=== PATIENT | male | born 1965 | race Caucasian/White ===

== ENCOUNTER 2017-01-13 22:37 | Emergency (ER) | payer BC ==
[~2017-01-13] VITALS: Ht 182.9 cm; Wt 88.3 kg
[2017-01-13 22:38] VITALS: TEMP 36.7; Ht 182.9 cm; Wt 88.3 kg
[2017-01-13] MEDS ORDERED: MoRPHine SULFATE 4 MG/ML 1 ML CARP\\VIAL IV STA (22:49)
[2017-01-13] MEDS ORDERED: ONDANSETRON INJ 2 MG/ML 2 ML VIAL IV STA (22:49)
--- NOTE | 2017-01-13 22:51 | EMERGENCY ROOM VISIT NOTE ---
History Report prepared by Scribe: Omero Heredia Under the Supervision of: Dr. Vimal Glover D.O. First contact with patient: 22:44 Chief Complaint: ABDOMINAL PAIN Stated Complaint: ABD PAIN/HARDNESS,NAUSEA,FEVER,SWEATS/CHILLS Nursing Triage Summary: pt c/o pain across abd, worse on the right side. ongoing for 2 weeks, worsened last night. associated nausea, headaches, sweats and chills, fevers. denies urinary symptoms History of Present Illness The patient is a 51 year old male who presents to the Emergency Room with complaints of waxing & waning right-sided abdominal pain for the past two weeks. The pain became worse last night, rated 9/10 in severity. The pain becomes worse after eating and when he lays flat. The pain improves when he is sitting up. He has also been feeling nauseous. He denies any history of pancreatic, gallbladder, or liver disease. He denies any diarrhea or urinary symptoms. Source of History: patient Onset: two weeks ago Position: abdomen (right side) Symptom Intensity: up to 9/10 Timing: waxes/wanes Associated Symptoms: + nausea, No diarrhea, No urinary symptoms Review of Systems See HPI for pertinent positives and negatives. A total of ten systems were reviewed and were otherwise negative. Past Medical & Surgical Medical Problems: (1) Migraine Family History FH: cancer FH: heart disease Social History Smoking Status: Never Smoker Marital Status: Housing Status: lives with significant other Occupation Status: employed Current/Historical Medications Scheduled PRN Sumatriptan Succinate (Imitrex Statdose), 1 DOSE INJ DIRECTED PRN for Migraine Allergies Coded Allergies: [place] Syrup (Verified Allergy, Intermediate, TRIGGERS MIGRAINE HEADACHE, ) Physical Exam Vital Signs Date Time Temp Pulse Resp B/P Pulse Ox O2 Delivery O2 Flow Rate FiO2 01/14/17 01:45 67 18 145/98 96 Room Air 01/14/17 00:37 66 18 145/88 97 Room Air 01/13/17 23:26 70 18 151/98 95 Room Air 01/13/17 23:17 78 01/13/17 22:38 36.7 96 18 132/95 96 Room Air Physical Exam GENERAL: Awake, alert, well-appearing, in no distress HENT: Normocephalic, atraumatic. Oropharynx unremarkable. EYES: Normal conjunctiva. Sclera non-icteric. NECK: Supple. No nuchal rigidity. FROM. No JVD. RESPIRATORY: Clear to auscultation. CARDIAC: Regular rate, normal rhythm. Extremities warm and well perfused. Pulses equal. ABDOMEN: Soft, non-distended. Tender in the right upper quadrant and mid epigastrium. No rebound or guarding. No masses. RECTAL: Deferred. MUSCULOSKELETAL: Chest examination reveals no tenderness. The back is symmetrical on inspection without obvious abnormality. There is no CVA tenderness to palpation. No joint edema. LOWER EXTREMITIES: Calves are equal size bilaterally and non-tender. No edema. No discoloration. NEURO: Normal sensorium. No sensory or motor deficits noted. SKIN: No rash or jaundice noted. Medical Decision & Procedures ER Provider Diagnostic Interpretation: Radiology results as stated below per my review and radiologist interpretation. CT ABDOMEN & PELVIS: Appendix is normal. Mild fat stranding surrounding the first through third portions of the duodenum. Differential includes duodenitis versus peptic ulcer disease versus groove pancreatitis. Submucosal fat in the duodenum possibly secondary to chronic inflammation or corticosteroid use. Colonic diverticulosis without evidence of diverticulitis. No free air. No evidence of bowel obstruction. 2 mm nonobstructing left renal calculus. Tiny hyperdensities in the liver and left kidney too small to characterize but possible cysts. Small left inguinal fat containing hernia. Radiologist: Aung Palomino MD. Laboratory Results 01/13/17 23:00 Red Blood Count 4.93, Mean Corpuscular Volume 88.4, Mean Corpuscular Hemoglobin 30.2, Mean Corpuscular Hemoglobin Concent 34.2, Mean Platelet Volume 10.3, Neutrophils (%) (Auto) 69.5, Lymphocytes (%) (Auto) 18.9, Monocytes (%) (Auto) 8.6, Eosinophils (%) (Auto) 2.6, Basophils (%) (Auto) 0.2, Neutrophils # (Auto) 7.23, Lymphocytes # (Auto) 1.97, Monocytes # (Auto) 0.89, Eosinophils # (Auto) 0.27, Basophils # (Auto) 0.02 01/13/17 23:00 Test 01/13/17 22:49 01/13/17 23:00 White Blood Count 10.40 K/uL (4.8-10.8) Red Blood Count 4.93 M/uL (4.7-6.1) Hemoglobin 14.9 g/dL (14.0-18.0) Hematocrit 43.6 % (42-52) Mean Corpuscular Volume 88.4 fL (80-100) Mean Corpuscular Hemoglobin 30.2 pg (25-34) Mean Corpuscular Hemoglobin Concent 34.2 g/dl (32-36) Platelet Count 292 K/uL (130-400) Mean Platelet Volume 10.3 fL (7.4-10.4) Neutrophils (%) (Auto) 69.5 % Lymphocytes (%) (Auto) 18.9 % Monocytes (%) (Auto) 8.6 % Eosinophils (%) (Auto) 2.6 % Basophils (%) (Auto) 0.2 % Neutrophils # (Auto) 7.23 K/uL (1.4-6.5) Lymphocytes # (Auto) 1.97 K/uL (1.2-3.4) Monocytes # (Auto) 0.89 K/uL (0.11-0.59) Eosinophils # (Auto) 0.27 K/uL (0-0.5) Basophils # (Auto) 0.02 K/uL (0-0.2) RDW Standard Deviation 45.6 fL (36.4-46.3) RDW Coefficient of Variation 14.0 % (11.5-14.5) Immature Granulocyte % (Auto) 0.2 % Immature Granulocyte # (Auto) 0.02 K/uL (0.00-0.02) Anion Gap 9.0 mmol/L (3-11) Est Creatinine Clear Calc Drug Dose 97.0 ml/min Estimated GFR () 101.3 Estimated GFR (Non- 87.4 BUN/Creatinine Ratio 15.8 (10-20) Calcium Level 9.6 mg/dl (8.5-10.1) Total Bilirubin 0.4 mg/dl (0.2-1) Direct Bilirubin < 0.1 mg/dl (0-0.2) Aspartate Amino Transf (AST/SGOT) 12 U/L (15-37) Alanine Aminotransferase (ALT/SGPT) 25 U/L (12-78) Alkaline Phosphatase 76 U/L (45-117) Total Protein 7.5 gm/dl (6.4-8.2) Albumin 3.9 gm/dl (3.4-5.0) Lipase 157 U/L (73-393) Laboratory results reviewed by me Medications Administered Medications (Trade) Dose Ordered Sig/[place] Route Start Time Stop Time Status Last Admin Dose Admin Ondansetron HCl (Zofran Inj) 4 mg NOW STAT IV 01/13/17 22:49 01/13/17 22:52 DC 01/13/17 23:09 4 MG Morphine Sulfate (MoRPHine SULFATE INJ) 4 mg NOW STAT IV 01/13/17 22:49 01/13/17 22:52 DC 01/13/17 23:09 4 MG ED Course 2245: The patient was evaluated in room C10. A complete history and physical exam was performed. 2249: Morphine Sulfate 4 mg IV, Zofran 4 mg IV. 0135: I reevaluated the patient. He was resting in no distress, still had slight epigastric pain. Discussed results and discharge instructions: He verbalized understanding and agreement. The patient is ready for discharge. Medical Decision Differential diagnosis includes cholelithiasis, cholecystitis, pancreatitis, colitis, dehydration. Repeat examination resting in no distress; discussed workup the patient at bedside. We'll treat for duodenitis. Patient needs referral to GI if this persists. I've instructed the patient to take Pepcid daily we'll place him on pain medicine and he was told to change his diet. Impression Primary Impression: Duodenitis Scribe Attestation The scribe's documentation has been prepared under my direction and personally reviewed by me in its entirety. I confirm that the note above accurately reflects all work, treatment, procedures, and medical decision making performed by me. Departure Information Dispostion Home / Self-Care Prescriptions Hydrocodone/Acetaminophen 5MG/325MG ([place] 5MG/325MG) Tab 1 TABLET PO Q4H Y for Pain, #10 TAB Prov: Vimal Glover, DO 01/14/17 Referrals RV. James MD (PCP) Forms HOME CARE DOCUMENTATION FORM, IMPORTANT VISIT INFORMATION Patient Instructions Keira, My [facility]
[2017-01-13] MEDS ORDERED: SUMA6KIT INJ (23:04)
[2017-01-13 23:28] LABS: BASO % 0.2 %; BASO ABS # 0.02 K/uL (0-0.2); COMPLETE YES; EOS % 2.6 %; HEMATOCRIT 43.6 % (42-52); IG% 0.2 %; LYMPH % 18.9 %; LYMPH ABS # 1.97 K/uL (1.2-3.4); MEAN CELL VOLUME 88.4 fL (80-100); MEAN CORPUSCULAR HEMOGLOBIN 30.2 pg (25-34); MEAN CORPUSCULAR HGB CONC 34.2 g/dl (32-36); MEAN PLATELET VOLUME 10.3 fL (7.4-10.4); MONO % 8.6 %; NEUT % 69.5 %; PLATELET COUNT 292 K/uL (130-400); RED BLOOD COUNT 4.93 M/uL (4.7-6.1)
[2017-01-13] MEDS ORDERED: OPTIRAY 320 IV PRN (23:30)
[2017-01-13 23:48] LABS: ALT/SGPT 25 U/L (12-78); AST/SGOT 12 U/L (15-37); BLOOD UREA NITROGEN 16 mg/dl (7-18); BUN/CREATININE RATIO 15.8 (10-20); CALCIUM 9.6 mg/dl (8.5-10.1); CARBON DIOXIDE 29 mmol/L (21-32); CHLORIDE 107 mmol/L (98-107); GLUCOSE 103 mg/dl (70-99); POTASSIUM 3.9 mmol/L (3.5-5.1); SODIUM 145 mmol/L (136-145)
[2017-01-13 23:51] LABS: ALKALINE PHOSPHATASE 76 U/L (45-117)
[2017-01-14 01:45] VITALS: BP 145/98; PULSE 67; O2SAT 96
[2017-01-14] MEDS ORDERED: NORCO 5/325MG HOME PACK PO ONE (01:45)
[2017-01-14] MEDS ORDERED: HYDR-5688 PO (01:50)
[2017-01-14 01:55] LABS: URINE APPEARANCE CLEAR (CLEAR); URINE BILIRUBIN NEG (NEG); URINE COLOR YELLOW; URINE EPITHELIAL CELL AUTO 0-5 /lpf (0-5); URINE NITRITE NEG (NEG); URINE SPECIFIC GRAVITY > 1.045 (1.000-1.030); UROBILINOGEN NEG (NEG); ZZUR CULT IF INDIC CLEAN CATCH NO
[2017-01-14 02:00] LABS: MANUAL MICROSCOPIC REQUIRED? NO; REVIEW REQ? NO
--- NOTE | 2017-01-14 06:08 | DIAGNOSTIC IMAGING REPORT ---
ABDOMEN AND PELVIS CT WITH IV CONTRAST CT DOSE: 628.55 mGy.cm HISTORY: pain TECHNIQUE: Multiaxial CT images of the abdomen and pelvis were performed following the use of intravenous contrast. COMPARISON STUDY: None. FINDINGS: Lung bases are clear. Liver spleen and pancreas are unremarkable. Subtle infiltrative change of the fat surrounding the gastric antrum and duodenal sweep. This may be secondary to nonspecific duodenitis versus peptic ulcer change. No evidence for gastric distention. Kidneys enhance appropriately. No evidence for obstructive change.. Small left renal cyst with punctate lower pole nonobstructing calcifications. Bowel pattern overall is nonobstructive. There are findings of chronic sigmoid diverticulosis.. IMPRESSION: 1. Mild infiltrative change of the fat surrounding the duodenal sweep suggesting a duodenitis versus peptic ulcer change 2. Chronic sigmoid diverticulosis. 3. Nonobstructing punctate renal cortical calcifications. 4. Nonobstructive bowel pattern. Normal appendix Electronically signed by: Teofilo Vann M.D. 01/14/2017 6:07 AM Dictated Date/Time: 01/14/2017 6:03 AM
[2017-02-13] MEDS ORDERED: PRLSR20 PO (10:21)
== END 2017-01-14 01:58 | disposition home or self-care (01) ==
LOC: C.EDB 22:38 → C.EDC 01-14 01:58
DX: K29.80 Duodenitis without bleeding (principal); Z91.018 Allergy to other foods

== ENCOUNTER → 2017-02-13 | Day surgery (SDC) | payer BC ==
[~2017-02-13] VITALS: Ht 182.9 cm; Wt 90.9 kg
[~2017-02-13] MED LIST: ATROPINE SULFATE 0.1 MG/ML 5ML SYR IV PRN; EpHEDrine SULFATE INJ 50 MG/ML AMP IV PRN; FENTANYL CITRATE INJ 50 MCG/1 ML 2 ML VIAL ONE; HYDR-5688 PO; PRLSR20 PO; PROPOFOL IV EMULSION 10 MG/ML 20 ML VIAL IV ONE; SUMA6KIT INJ
[2017-02-13 09:57] VITALS: Ht 182.9 cm; Wt 90.9 kg
--- NOTE | 2017-02-13 10:58 | Endo History and Physical ---
History & Physical Date of Service: Feb 13, 2017. Chief Complaint: abd pain, duodenitis Referring Physician: Dr James History of Present Illness 51 yo CM who presents for EGD secondary to abdominal pain and duodenitis. Past Surgical History Hx Cardiac Surgery: No Hx Internal Defibrillator: No Hx Pacemaker: No Hx Abdominal Surgery: No Hx of Implantable Prosthesis: No Hx Post-Op Nausea and Vomiting: No Hx Cancer Surgery: No Hx Thoracic Surgery: No Hx Orthopedic: No Hx Urinary Tract Surgery: No Family History None Social History Smoking Status: Never Smoker Hx Substance Use: No Hx Alcohol Use: Yes (socially) Allergies Coded Allergies: [place] Syrup (Verified Allergy, Intermediate, TRIGGERS MIGRAINE HEADACHE, ) Current Medications Reported Home Medications Medications Dose Route/Sig Max Daily Dose Days Date Category Prilosec (Omeprazole) 20 Mg Capcr 20 Mg PO DAILY 02/13/17 Reported [place] 5MG/325MG (Acetaminophen/Hydrocodone Bitart) Tab 1 Tablet PO Q4H PRN 01/14/17 Rx Imitrex Statdose (Sumatriptan Succinate) 6 Mg/0.5 Ml Inj 1 Dose INJ DIRECTED PRN 01/13/17 Reported Vital Signs Weight (Kilograms): 90.9 Height (Feet): 6 Height (Inches): 0 Date Time Temp Pulse Resp B/P (MAP) Pulse Ox O2 Delivery O2 Flow Rate FiO2 02/13/17 10:13 36.7 65 20 131/84 (100) 96 Room Air Physical Exam General Appearance: WD/WN, no apparent distress Respiratory/Chest: Auscultation: breath sounds normal Cardiovascular: Heart Auscultation: RRR Abdomen: Bowel Sounds: normal Inspection & Palpation: soft, non-distended, no tenderness, guarding & rebound Assessment and Plan Assessment: 51 yo CM who presents for EGD secondary to abdominal pain and duodenitis. Plan: Proceed with EGD.
--- NOTE | 2017-02-13 11:09 | Discharge Instructions ---
Endoscopy Patient Instructions Date / Procedure(s) Performed Feb 13, 2017. EGD Allergy Information Coded Allergies: [place] Syrup (Verified Allergy, Intermediate, TRIGGERS MIGRAINE HEADACHE, ) Discharge Date / Findings Feb 13, 2017. Duodenal ulcer Duodenitis s/p biopsies Gastric antrum biopsies Medication Instructions Recommend Pantoprazole 40mg by mouth daily 1/2 hour prior to breakfast. OK to resume medications today as prescribed Medications Dose Route/Sig Max Daily Dose Days Date Category Prilosec (Omeprazole) 20 Mg Capcr 20 Mg PO DAILY 02/13/17 Reported [place] 5MG/325MG (Acetaminophen/Hydrocodone Bitart) Tab 1 Tablet PO Q4H PRN 01/14/17 Rx Imitrex Statdose (Sumatriptan Succinate) 6 Mg/0.5 Ml Inj 1 Dose INJ DIRECTED PRN 01/13/17 Reported Provider Instructions Activity Restrictions - No exercising or heavy lifting for 24 hours. - Do not drink alcohol the day of the procedure. - Do not drive a car or operate machinery until the day after the procedure. - Do not make any important decisions or sign important papers in 24 hours after the procedure. Following Day: - Return to full activity which may include returning to work/school. Diet Start your diet with liquids and light foods (jello, soup, juice, toast). Then eat your usual diet if not nauseated. Treatment For Common After Affects For mild abdominal pain, bloating, or excessive gas: - Rest - Eat lightly - Lie on right side Follow-Up Information Follow-up with Dr James as scheduled Anesthesia Information What You Should Know You have had a procedure that required some medicine to reduce anxiety and discomfort. This treatment is called moderate sedation. After receiving the treatment, you may be sleepy, but you will be able to breathe on your own. The effects of the treatment may last for several hours. Follow these instructions along with Activity/Diet recommendations noted above: * Do NOT do anything where dizziness or clumsiness would be dangerous. * Rest quietly at home today, then you can be up and about tomorrow. * Have a responsible person stay with you the rest of today. * You may have had an I.V. today. If so, you may take the dressing off later today. Recommendations Call your doctor if: * Trouble breathing * Continuous vomiting for more than 24 hours * Temperature above 101 degrees * Severe abdominal pain or bloating * Pain not relieved by pain medicine ordered * There is increased drainage or redness from any incision * A large amount of rectal bleeding greater than 2-3 tablespoons. (If you had a polyp/s removed or have hemorrhoids, a small amount of blood - from the rectum is to be expected.) * You have any unanswered questions or concerns. IN THE EVENT OF A SERIOUS EMERGENCY, GO TO THE NEAREST EMERGENCY ROOM Your discharge instructions were prepared by provider David Mitchell. Patient Instructions Signature Page Juan R Liu Patient (or Guardian) Signature/Date: I have read and understand the instructions given to me by my caregivers. Caregiver/RN/Doctor Signature/Date: The above-named patient and/or guardian has received patient instructions on this date. + Original Patient Signature Page (only) stays with chart. Please make copy for patient.
--- NOTE | 2017-02-13 11:18 | GI REPORT ---
Procedure Date: 02/13/2017 10:25 AM Procedure: Upper GI endoscopy Indications: Abdominal pain in the right upper quadrant Medicines: Monitored Anesthesia Care Complications: No immediate complications. Estimated Blood Loss: Estimated blood loss: none. Procedure: Pre-Anesthesia Assessment: - Prior to the procedure, a History and Physical was performed, and patient medications and allergies were reviewed. The patient's tolerance of previous anesthesia was also reviewed. The risks and benefits of the procedure and the sedation options and risks were discussed with the patient. All questions were answered, and informed consent was obtained. Prior Anticoagulants: The patient has taken no previous anticoagulant or antiplatelet agents. ASA Grade Assessment: II - A patient with mild systemic disease. After reviewing the risks and benefits, the patient was deemed in satisfactory condition to undergo the procedure. After obtaining informed consent, the endoscope was passed under direct vision. Throughout the procedure, the patient's blood pressure, pulse, and oxygen saturations were monitored continuously. The scope was introduced through the mouth, and advanced to the second part of duodenum. The upper GI endoscopy was accomplished without difficulty. The patient tolerated the procedure well. Findings: The esophagus was normal. The entire examined stomach was normal. Biopsies were taken with a cold forceps for Helicobacter pylori testing. One non-bleeding cratered duodenal ulcer with no stigmata of bleeding was found in the first part of the duodenum. The lesion was 5 mm in largest dimension. Localized moderate inflammation characterized by erythema was found in the first part of the duodenum. Biopsies were taken with a cold forceps for histology. Impression: - Normal esophagus. - Normal stomach. Biopsied. - One non-bleeding duodenal ulcer with no stigmata of bleeding. - Duodenitis. Biopsied. Recommendation: - Resume previous diet. - Use Protonix (pantoprazole) 40 mg PO daily. - Await pathology results. - Return to primary care physician as previously scheduled. David Mitchell DO 02/13/2017 11:17:45 AM This report has been signed electronically. Note Initiated On: 02/13/2017 10:25 AM I attest to the content of the Intraoperative Record and orders documented therein, exceptions below
--- NOTE | 2017-02-13 11:21 | Anesthesiology Progress Note ---
Anesthesia Post Op Note Date & Time Feb 13, 2017 at 11:21 Vital Signs Pain Intensity: 1 Vital Signs Past 12 Hours Date Time Temp Pulse Resp B/P (MAP) Pulse Ox O2 Delivery O2 Flow Rate FiO2 02/13/17 10:13 36.7 65 20 131/84 (100) 96 Room Air Notes Mental Status: alert / awake / arousable, participated in evaluation Pt Amnestic to Procedure: Yes Nausea / Vomiting: adequately controlled Pain: adequately controlled Airway Patency, RR, SpO2: stable & adequate BP & HR: stable & adequate Hydration State: stable & adequate Anesthetic Complications: no major complications apparent
[2017-02-13 11:41] VITALS: BP 107/64; PULSE 64; O2SAT 95
== END | disposition home or self-care (01) ==
LOC: C.GI 09:36
PROVIDERS: ATTEND Internal Medicine
DX: R10.11 Right upper quadrant pain (principal); K26.9 Duodenal ulcer, unspecified as acute or chronic, without hemorrhage or perforation; K29.80 Duodenitis without bleeding; Z98.818 Other dental procedure status

== ENCOUNTER → 2017-02-20 | Outpatient (CLI) | payer BC ==
[~2017-02-20] MED LIST changes: -ATROPINE SULFATE 0.1 MG/ML 5ML SYR IV PRN; -EpHEDrine SULFATE INJ 50 MG/ML AMP IV PRN; -FENTANYL CITRATE INJ 50 MCG/1 ML 2 ML VIAL ONE; -PROPOFOL IV EMULSION 10 MG/ML 20 ML VIAL IV ONE
--- NOTE | 2017-02-20 11:48 | DIAGNOSTIC IMAGING REPORT ---
NUCLEAR HEPATOBILIARY SCAN CLINICAL HISTORY: Right upper quadrant abdominal pain. Duodenitis. COMPARISON STUDY: Abdominal CT dated 01/14/2017. TECHNIQUE: Dynamic images of the liver and anterior abdomen were obtained every 5 minutes for a total of 60 minutes following the IV administration of 5.5mCi of technetium 99m Choletec. FINDINGS: The hepatobiliary scan shows prompt and homogeneous hepatic uptake. There is visualized activity within the intra and extrahepatic biliary tree at 15 minutes, and within the gallbladder at 35 minutes. There is normal biliary to bowel transit, with small bowel visualized by 15 minutes. IMPRESSION: Unremarkable nuclear hepatobiliary scan. There is no scintigraphic evidence of cholecystitis. Electronically signed by: Cristiano Turner M.D. 02/20/2017 11:47 AM Dictated Date/Time: 02/20/2017 11:45 AM
== END | disposition home or self-care (01) ==
LOC: C.NUCL 09:47
PROVIDERS: ATTEND Physician Assistant
DX: R10.11 Right upper quadrant pain (principal); K29.80 Duodenitis without bleeding

== ENCOUNTER → 2017-06-20 | Outpatient (CLI) | payer BC ==
[2017-06-20 12:25] LABS: BASO % 0.3 %; BASO ABS # 0.02 K/uL (0-0.2); COMPLETE YES; EOS % 2.9 %; HEMATOCRIT 44.1 % (42-52); IG% 0.2 %; LYMPH % 27.6 %; LYMPH ABS # 1.62 K/uL (1.2-3.4); MEAN CELL VOLUME 89.5 fL (80-100); MEAN CORPUSCULAR HEMOGLOBIN 29.6 pg (25-34); MEAN CORPUSCULAR HGB CONC 33.1 g/dl (32-36); MEAN PLATELET VOLUME 10.8 fL (7.4-10.4); MONO % 7.8 %; NEUT % 61.2 %; PLATELET COUNT 237 K/uL (130-400); RED BLOOD COUNT 4.93 M/uL (4.7-6.1); WHITE BLOOD COUNT 5.88 K/uL (4.8-10.8)
[2017-06-20 13:21] LABS: ALB/GLOB RATIO 1.1 (0.9-2); ALKALINE PHOSPHATASE 67 U/L (45-117); ALT/SGPT 21 U/L (12-78); AST/SGOT 16 U/L (15-37); BLOOD UREA NITROGEN 17 mg/dl (7-18); BUN/CREATININE RATIO 18.7 (10-20); CALCIUM 9.2 mg/dl (8.5-10.1); CARBON DIOXIDE 28 mmol/L (21-32); CHLORIDE 108 mmol/L (98-107); CHOLESTEROL 205 mg/dl (0-200); CHOLESTEROL/HDL RATIO 4.6; CREATININE 0.91 mg/dl (0.60-1.40); GLUCOSE 92 mg/dl (70-99); HDL CHOLESTEROL 45 mg/dl; LDL CHOLESTEROL CALCULATED 137 mg/dl; POTASSIUM 4.3 mmol/L (3.5-5.1); SODIUM 141 mmol/L (136-145); TRIGLYCERIDES 116 mg/dl (0-150); VERY LOW DENSITY LIPOPROT CALC 23 mg/dl
== END | disposition home or self-care (01) ==
LOC: C.LAB1850 08:39
PROVIDERS: ATTEND Internal Medicine
DX: Z00.00 Encounter for general adult medical examination without abnormal findings (principal); Z12.5 Encounter for screening for malignant neoplasm of prostate; E78.5 Hyperlipidemia, unspecified

== ENCOUNTER → 2017-12-07 | Outpatient (CLI) | payer BC ==
[~2017-12-07] MED LIST changes: -HYDR-5688 PO
--- NOTE | 2017-12-07 13:17 | DIAGNOSTIC IMAGING REPORT ---
R EXTREMITY NONVASCULAR LIMITED HISTORY: 52 years-old Male D17.20 Lipoma of shoulder COMPARISON: None available TECHNIQUE: Multiple real-time sonographic images of the right shoulder soft tissues were obtained assessing grayscale appearance and color flow FINDINGS: Within the area of palpable concern in the region of the mid right trapezius there is an ill-defined ovoid subcutaneous lesion which appears isoechoic to adjacent subcutaneous fat overall measuring 4.2 x 3.6 x 1.6 cm demonstrating no appreciable internal flow. IMPRESSION: 4.2 cm subcutaneous lesion suggests lipoma. The above report was generated using voice recognition software. It may contain grammatical, syntax or spelling errors. Electronically signed by: Mamadou Nicholson M.D. 12/07/2017 1:15 PM Dictated Date/Time: 12/07/2017 1:14 PM
== END | disposition home or self-care (01) ==
LOC: C.ULTR 12:16
PROVIDERS: ATTEND Physician Assistant
DX: D17.39 Benign lipomatous neoplasm of skin and subcutaneous tissue of other sites (principal)

== ENCOUNTER → 2017-12-21 | Outpatient (CLI) | payer BC | END | disposition home or self-care (01) | LOC: C.LABSPEC 17:58 → C.PATHSPEC 17:59 | PROVIDERS: ATTEND Surgery | DX: D17.20 Benign lipomatous neoplasm of skin and subcutaneous tissue of unspecified limb (principal) ==

== ENCOUNTER → 2018-04-19 | Outpatient (CLI) | payer BC ==
[2018-04-19 15:45] LABS: BASO % 0.2 %; BASO ABS # 0.02 K/uL (0-0.2); EOS % 3.7 %; EOS ABS # 0.31 K/uL (0-0.5); HEMATOCRIT 43.4 % (42-52); HEMOGLOBIN 15.2 g/dL (14.0-18.0); IG# 0.02 K/uL (0.00-0.02); LYMPH % 24.9 %; LYMPH ABS # 2.07 K/uL (1.2-3.4); MEAN CORPUSCULAR HEMOGLOBIN 31.5 pg (25-34); MEAN PLATELET VOLUME 10.5 fL (7.4-10.4); MONO % 7.5 %; MONO ABS # 0.62 K/uL (0.11-0.59); NEUT % 63.5 %; NEUT ABS # 5.26 K/uL (1.4-6.5); PLATELET COUNT 235 K/uL (130-400); RED CELL DISTRIBUTION WIDTH CV 14.1 % (11.5-14.5); RED CELL DISTRIBUTION WIDTH SD 46.7 fL (36.4-46.3)
[2018-04-19 16:23] LABS: ALKALINE PHOSPHATASE 65 U/L (45-117); ALT/SGPT 26 U/L (12-78); AST/SGOT 18 U/L (15-37); BLOOD UREA NITROGEN 19 mg/dl (7-18); CALCIUM 9.3 mg/dl (8.5-10.1); CARBON DIOXIDE 27 mmol/L (21-32); CREATININE 0.93 mg/dl (0.60-1.40); GLUCOSE 83 mg/dl (70-99); SODIUM 141 mmol/L (136-145); TOTAL PROTEIN 7.7 gm/dl (6.4-8.2)
== END | disposition home or self-care (01) ==
LOC: C.LAB1850 14:13
PROVIDERS: ATTEND Physician Assistant
DX: M25.50 Pain in unspecified joint (principal); R53.81 Other malaise; R53.83 Other fatigue